=== PATIENT | female | born 1960 | race Caucasian/White ===

== ENCOUNTER 2017-05-19 12:30 | Outpatient (CLI) | payer OTHER ==
--- NOTE | 2017-05-20 08:22 | DEXA Report ---
DEXA SCAN: 05/19/2017 CLINICAL INDICATION: Postmenopausal. TECHNIQUE: Dual energy x-ray absorptiometry (DXA) was performed on a [employer] system. Regions measured are the AP spine, femoral neck, and, if needed, forearm. COMPARISON: None. In accordance with the International Society for Clinical Densitometry (ISCD) guidelines, data from previous exams may be reanalyzed using current recommendations and techniques. This is done to allow a more accurate basis for comparison with the current study. FINDINGS: The data for the lumbar spine is as follows: REGION BMD (g/cm/cm) T-SCORE Z-SCORE L1 1.010 -1.0 0.0 L2 1.066 -1.1 -0.1 L3 1.066 -1.1 -0.1 L4 1.029 -1.4 -0.4 TOTAL 1.044 -1.1 -0.1 NOTE: All evaluable vertebrae are used for classification. The data for the hip is as follows: REGION BMD (g/cm/cm) T-SCORE Z-SCORE Neck 0.771 -1.9 -0.8 TOTAL 0.859 -1.2 -0.4 NOTE: The femoral neck or total proximal femur, whichever is lowest, is used for classification. IMPRESSION: THE WHO CLASSIFICATION BASED ON THE INTERNATIONAL REFERENCE STANDARD IS OSTEOPENIA. THE FRACTURE RISK IS INCREASED. RECOMMENDATION: Patients with diagnosis of osteoporosis or osteopenia should have regular bone mineral density assessment. For those eligible for Medicare, routine testing is allowed once every 2 years. Testing frequency can be increased for patients who have rapidly progressing disease or for those who are receiving medical therapy to restore bone mass. COMMENT: World Health Organization (WHO) definitions for osteoporosis and osteopenia: NORMAL BMD: T-score at -1.0 or higher, fracture risk is low. OSTEOPENIA BMD: T-score between -1.0 and -2.5, fracture risk is increased. OSTEOPOROSIS BMD: T-score at -2.5 or lower, fracture risk high. National Osteoporosis Foundation recommends: 1. Obtain adequate dietary calcium (at least 1200 mg per day) and vitamin D (400 -800 international units per day). 2. Participate, as appropriate, in regular weightbearing and muscle- strengthening exercise. 3. Avoid tobacco use and reduce alcohol and caffeine intake. 4. For more detailed information see the website at www.NOF.org. MTDD
== END 2017-05-19 12:31 | disposition home or self-care (01) ==
LOC: DI 12:30
PROVIDERS: ATTEND Family Medicine
DX: Z13.820 Encounter for screening for osteoporosis (principal); M85.89 Other specified disorders of bone density and structure, multiple sites
CPT/HCPCS: 77080

== ENCOUNTER 2017-07-07 11:00 | Outpatient (CLI) | payer OTHER ==
[2017-07-07 11:54] LABS: ALBUMIN/GLOBULIN RATIO 1.5 (1.0-2.2); BILIRUBIN,TOTAL 0.6 mg/dL (0.2-1.0); CALCIUM 9.5 mg/dL (8.5-10.3); CREATININE 0.6 mg/dL (0.4-1.0); TOTAL PROTEIN 6.7 g/dL (6.7-8.2)
== END 2017-07-07 11:01 | disposition home or self-care (01) ==
LOC: LAB 11:00
PROVIDERS: ATTEND Family Medicine
DX: M06.9 Rheumatoid arthritis, unspecified (principal)
CPT/HCPCS: 36415; 80053

== ENCOUNTER 2017-12-09 11:39 | Outpatient (CLI) | payer OTHER ==
[2017-12-09 12:04] LABS: BASOPHILS # (AUTO) 0.1 10^3/uL (0.0-0.1); BASOPHILS % (AUTO) 0.6 %; EOSINOPHILS # (AUTO) 2.6 10^3/uL (0.0-0.7); EOSINOPHILS % (AUTO) 26.5 %; HGB - HEMOGLOBIN 13.5 g/dL (12.0-16.0); LYMPHOCYTES # (AUTO) 2.5 10^3/uL (1.5-3.5); LYMPHOCYTES % (AUTO) 25.7 %; MEAN CORPUSCULAR HEMOGLOBIN 34.1 pg (27.0-31.0); MEAN CORPUSCULAR HGB CONC 34.2 g/dL (32.0-36.0); MEAN CORPUSCULAR VOLUME 99.9 fL (81.0-99.0); MONOCYTES # (AUTO) 0.5 10^3/uL (0.0-1.0); MONOCYTES % (AUTO) 5.5 %; NEUTROPHILS % (AUTO) 41.7 %; PLT - PLATELET COUNT 203 10^3/uL (130-450); RED BLOOD COUNT 3.96 10^6/uL (4.20-5.40); RED CELL DISTRIBUTION WIDTH 14.6 % (12.0-15.0); WHITE BLOOD COUNT 9.6 x10^3/uL (4.8-10.8)
[2017-12-09 12:27] LABS: RBC MORPHOLOGY (MULTIPLE) 2+ ANISOCYTOSIS (NORMAL)
[2017-12-09 12:30] LABS: ALT ALANINE AMINOTRANSFERASE 19 IU/L (10-60); AST ASPARTATE AMINOTRANSFERASE 22 IU/L (10-42); CREATININE 0.5 mg/dL (0.4-1.0); GFR - MDRD 127 (>89)
[2017-12-09 12:46] LABS: CRP - C-REACTIVE PROTEIN < 1.0 mg/dL (0-1.0)
== END 2017-12-09 11:40 | disposition home or self-care (01) ==
LOC: LAB 11:39
PROVIDERS: ATTEND Internal Medicine Rheumatology
DX: M06.09 Rheumatoid arthritis without rheumatoid factor, multiple sites (principal); Z79.899 Other long term (current) drug therapy
CPT/HCPCS: 36415; 82565; 84450; 84460; 85025; 85651; 86140

== ENCOUNTER 2018-05-25 05:30 | Emergency (ER) | payer OTHER ==
[2018-05-25] MEDS ORDERED: SODIUM CHLORIDE 0.9% 1,000 ML IV ONE (05:57)
[2018-05-25] MEDS ORDERED: fentaNYL 100 MCG/2 ML VIAL IVP STA (05:57)
[2018-05-25] MEDS ORDERED: ONDANSETRON 4 MG/2 ML VIAL IVP STA (05:57)
[2018-05-25] MEDS ORDERED: FAMOTIDINE 20 MG/50 ML 50 ML IV ONE (05:59)
--- NOTE | 2018-05-25 06:01 | ED Physician Documentation ---
PD HPI GI BLEED - Stated complaint Stated Complaint: RECTAL BLEEDING - Chief complaint Chief Complaint: Abd Pain - History obtained from History obtained from: Patient - History of Present Illness Timing - onset: Yesterday Associated symptoms: BRBPR, Abdominal pain Similar symptoms before: Has not had sx before - Additional information Additional information: The patient is a 58-year-old female who presents with bright red blood per rectum and abdominal cramping pain. Her symptoms started about 12 hours prior to arrival. She has had several episodes of passing small amounts of bright red blood. She denies clots. She reports associated nausea, without vomiting. She has had chills, and reports urinary frequency, without dysuria. She has no history of similar symptoms in the past. She had surgery for ectopic more than 30 years ago. Review of Systems Constitutional: reports: Chills. denies: Fever Nose: denies: Congestion Throat: denies: Sore throat Cardiac: denies: Chest pain / pressure Respiratory: denies: Dyspnea, Cough GI: reports: Abdominal Pain, Nausea, Bloody / black stool. denies: Vomiting : reports: Frequency. denies: Dysuria Skin: denies: Rash Musculoskeletal: denies: Back pain Neurologic: denies: Headache PD PAST MEDICAL HISTORY - Past Medical History Cardiovascular: None Respiratory: None Endocrine/Autoimmune: None - Present Medications Home Medications: Ambulatory Orders Medication Instructions Recorded Confirmed Calcium Carbonate [Calcium] 1 tab PO DAILY 05/25/18 05/25/18 Cholecalciferol (Vitamin D3) 1 tab PO DAILY 05/25/18 05/25/18 [Vitamin D3] Famotidine 20 mg PO DAILY #20 tablet 05/25/18 Folic Acid 1 tab PO DAILY 05/25/18 05/25/18 HYDROcod/ACETAM 5/325 [[facility] 5/325] 1 - 2 ea PO Q6H PRN #15 tablet 05/25/18 Methotrexate Sodium [Trexall] 1 tab PO DAILY 05/25/18 05/25/18 Promethazine [Phenergan] 25 - 50 mg PO Q6H PRN #10 tab 05/25/18 Tofacitinib Citrate [Xeljanz Xr] 1 tab PO DAILY 05/25/18 05/25/18 - Allergies Allergies/Adverse Reactions: Allergies Allergy/AdvReac Type Severity Reaction Status Date / Time No Known Drug Allergies Allergy Verified 05/25/18 05:41 - Social History Does the pt smoke?: No PD ED PE NORMAL - Vitals Vital signs reviewed: Yes (hypertensive) - General General: Alert and oriented X 3, Well developed/nourished - HEENT HEENT: Atraumatic, Moist mucous membranes, Pharynx benign - Neck Neck: No adenopathy, No JVD - Cardiac Cardiac: RRR - Respiratory Respiratory: No respiratory distress, Clear bilaterally - Abdomen Abdomen: Normal bowel sounds, Soft, Non distended, Other (Mild tenderness to palpation in the left upper quadrant more than elsewhere, without rebound or guarding.) - Back Back: No CVA TTP - Derm Derm: No rash - Extremities Extremities: No edema, No calf tenderness / cord - Neuro Neuro: Alert and oriented X 3, No motor deficit, No sensory deficit, Normal speech PD ED PE EXPANDED - Rectal Rectal: Heme Occult Pos - QC + Results - Vitals Vitals: Oxygen O2 Source Room air - Labs Labs: Laboratory Tests 05/25/18 05/25/18 05/25/18 05:40 05:40 06:51 WBC 12.5 H RBC 4.09 L Hgb 14.1 Hct 42.2 MCV 103.1 H MCH 34.4 H MCHC 33.4 RDW 15.0 Plt Count 194 MPV 8.9 Neut # (Auto) 9.9 H Lymph # (Auto) 1.6 Ferry # (Auto) 0.8 Eos # (Auto) 0.2 Baso # (Auto) 0.0 Absolute Nucleated RBC 0.00 Nucleated RBC % 0.0 Sodium 136 Potassium 3.7 Chloride 102 Carbon Dioxide 27 Anion Gap 7.0 BUN 19 Creatinine 0.6 Estimated GFR (MDRD) 102 Glucose 121 H Calcium 9.5 Total Bilirubin 0.8 AST 22 ALT 17 Alkaline Phosphatase 38 L Total Protein 7.3 Albumin 4.5 Globulin 2.8 Albumin/Globulin Ratio 1.6 Lipase 26 Urine Color STRAW Urine Clarity CLEAR Urine pH 6.0 Ur Specific Maribel <=1.005 Urine Protein NEGATIVE Urine Glucose (UA) NEGATIVE Urine Ketones NEGATIVE Urine Occult Blood TRACE-INTA Urine Nitrite NEGATIVE Urine Bilirubin NEGATIVE Urine Urobilinogen 0.2 (NORMAL) Ur Leukocyte Esterase NEGATIVE Ur Microscopic Review NOT INDICATED Urine Culture Comments NOT INDICATED PD MEDICAL DECISION MAKING - ED course Complexity details: reviewed results, re-evaluated patient, considered differential, d/w patient, d/w family ED course: The etiology of the patient's rectal bleeding is not certain at this time, but is most likely lower GI given that it is small amount of bright red blood. While internal hemorrhoid is a consideration, her crampy abdominal pain makes diverticular bleeding more likely. CBC reveals normal hemoglobin and hematocrit , with very slightly elevated white count of 12.5. Treatment in the emergency department included administration of normal saline 1 L IV, famotidine 20 mg IV, Ofirmev 1 g IV, and Zofran 4 mg IV. Her symptoms improved with the above treatment, and she had no further episodes of rectal bleeding. I discussed with her and her female research geologist the likely cause of her bleeding, symptomatic treatment and outpatient follow-up, as well as potentially worrisome signs or symptoms that should prompt reevaluation in the emergency department. She is advised to discuss colonoscopy with her primary physician, especially since she had polyps that were removed at her first colonoscopy 9 years ago. - Sepsis Event Vital Signs: Oxygen O2 Source Room air Departure - Departure Disposition: 01 Home, Self Care Clinical Impression: Rectal bleeding Hypertension Qualifiers: Hypertension type: unspecified secondary hypertension Qualified Code(s): I15.9 - Secondary hypertension, unspecified; I15 - Secondary hypertension Condition: Stable Instructions: ED Hematochezia Stable Follow-Up: Luc Charlton MD [Primary Care Provider] - Prescriptions: Famotidine 20 mg PO DAILY #20 tablet HYDROcod/ACETAM 5/325 [[facility] 5/325] 1 - 2 ea PO Q6H PRN #15 tablet PRN Reason: Pain Promethazine [Phenergan] 25 - 50 mg PO Q6H PRN #10 tab PRN Reason: Nausea / Vomiting Comments: Drink plenty of fluids. Take famotidine daily as prescribed. You can use Phenergan as prescribed if needed for nausea. You can use Vicodin as prescribed if needed for pain. Follow up with your primary physician within 1-2 weeks and discuss colonoscopy, and possible upper endoscopy. Return to the emergency department if you develop increasing abdominal pain, persistent vomiting, increasing rectal bleeding, or otherwise worsening symptoms. Discharge Date/Time: 05/25/18 07:57
[2018-05-25 06:08] LABS: BASOPHILS % (AUTO) 0.2 %; EOSINOPHILS # (AUTO) 0.2 10^3/uL (0.0-0.7); EOSINOPHILS % (AUTO) 1.4 %; HGB - HEMOGLOBIN 14.1 g/dL (12.0-16.0); LYMPHOCYTES # (AUTO) 1.6 10^3/uL (1.5-3.5); MEAN CORPUSCULAR HEMOGLOBIN 34.4 pg (27.0-31.0); MEAN CORPUSCULAR HGB CONC 33.4 g/dL (32.0-36.0); MEAN CORPUSCULAR VOLUME 103.1 fL (81.0-99.0); MEAN PLATELET VOLUME 8.9 fL (7.9-10.8); MONOCYTES # (AUTO) 0.8 10^3/uL (0.0-1.0); MONOCYTES % (AUTO) 6.6 %; NEUTROPHILS # (AUTO) 9.9 10^3/uL (1.5-6.6); NEUTROPHILS % (AUTO) 78.8 %; PLT - PLATELET COUNT 194 10^3/uL (130-450); RED BLOOD COUNT 4.09 10^6/uL (4.20-5.40); WHITE BLOOD COUNT 12.5 x10^3/uL (4.8-10.8)
[2018-05-25 06:14] LABS: ALBUMIN 4.5 g/dL (3.2-5.5); ALBUMIN/GLOBULIN RATIO 1.6 (1.0-2.2); BILIRUBIN,TOTAL 0.8 mg/dL (0.2-1.0); CALCIUM 9.5 mg/dL (8.5-10.3); CREATININE 0.6 mg/dL (0.4-1.0); TOTAL PROTEIN 7.3 g/dL (6.7-8.2)
[2018-05-25 07:09] LABS: BILIRUBIN,URINE NEGATIVE (NEGATIVE); GLUCOSE, URINE (UA) NEGATIVE (NEGATIVE); KETONES,URINE (UA) NEGATIVE (NEGATIVE); LEUKOCYTE ESTERASE, URINE NEGATIVE (NEGATIVE); NITRITE,URINE NEGATIVE (NEGATIVE); OCCULT BLOOD,URINE TRACE-INTA (NEGATIVE); PROTEIN,URINE NEGATIVE (NEGATIVE); UROBILINOGEN,URINE 0.2 (NORMAL) E.U./dL (NORMAL)
[2018-05-25 07:12] LABS: CLARITY,URINE CLEAR (CLEAR)
[2018-05-25] MEDS ORDERED: ACETAMINOPHEN 1,000 MG/100 ML 100 ML IV STA (07:22)
[2018-05-25 08:08] VITALS: BP 187/87
[2018-05-25] MEDS ORDERED: LIDOCAINE 1% 2 ML VIAL ONE (13:00)
== END 2018-05-25 07:57 | disposition home or self-care (01) ==
LOC: ED 05:30
DX: K62.5 Hemorrhage of anus and rectum (principal); I15.9 Secondary hypertension, unspecified
CPT/HCPCS: 36415; 80053; 81003; 83690; 85025; 96365; 96375; 99283; 99284; J0131; 81001; 87086

== ENCOUNTER 2023-08-30 09:47 | Outpatient (CLI) | payer OTHER | END 2023-08-30 09:48 | disposition short-term general hospital (02) | LOC: EMS 09:47 | DX: R50.9 Fever, unspecified (principal); R11.0 Nausea; I48.91 Unspecified atrial fibrillation; M79.662 Pain in left lower leg; M79.672 Pain in left foot | CPT/HCPCS: A0425; A0429 ==

== ENCOUNTER 2023-09-22 13:09 | Outpatient (CLI) | payer OTHER ==
[2023-09-22 13:29] LABS: BASOPHILS # (AUTO) 0.1 10^3/uL (0.0-0.1); BASOPHILS % (AUTO) 0.7 %; EOSINOPHILS # (AUTO) 1.8 10^3/uL (0.0-0.7); EOSINOPHILS % (AUTO) 17.8 %; HCT - HEMATOCRIT 31.9 % (37.0-47.0); HGB - HEMOGLOBIN 9.8 g/dL (12.0-16.0); LYMPHOCYTES # (AUTO) 1.4 10^3/uL (1.5-3.5); LYMPHOCYTES % (AUTO) 13.2 %; MEAN CORPUSCULAR HEMOGLOBIN 30.5 pg (27.0-31.0); MEAN CORPUSCULAR HGB CONC 30.7 g/dL (32.0-36.0); MEAN CORPUSCULAR VOLUME 99.4 fL (81.0-99.0); MEAN PLATELET VOLUME 12.3 fL (7.9-10.8); MONOCYTES # (AUTO) 0.4 10^3/uL (0.0-1.0); MONOCYTES % (AUTO) 4.3 %; NEUTROPHILS # (AUTO) 6.6 10^3/uL (1.5-6.6); NEUTROPHILS % (AUTO) 63.7 %; PLT - PLATELET COUNT 239 10^3/uL (130-450); RED BLOOD COUNT 3.21 10^6/uL (4.20-5.40); RED CELL DISTRIBUTION WIDTH 14.3 % (12.0-15.0); WHITE BLOOD COUNT 10.3 x10^3/uL (4.8-10.8)
[2023-09-22 13:35] LABS: CALCIUM 9.5 mg/dL (8.5-10.3); CREATININE 0.8 mg/dL (0.6-1.3); POTASSIUM 4.2 mmol/L (3.5-4.5)
[2023-09-22 13:43] LABS: SLIDE REVIEW? Indicated
[2023-09-22 14:18] LABS: PLATELET ESTIMATE, MANUAL NORMAL (130-450,000) (NORMAL); PLATELET MORPHOLOGY NORMAL APPEARANCE (NORMAL); RBC MORPHOLOGY (MULTIPLE) 2+ ANISOCYTOSIS (NORMAL); WBC MORPHOLOGY (MULTIPLE) NORMAL APPEARANCE (NORMAL)
== END 2023-09-22 13:10 | disposition home or self-care (01) ==
LOC: LAB.R 13:09
PROVIDERS: ATTEND Internal Medicine Infectious Disease
DX: T81.42XA Infection following a procedure, deep incisional surgical site, initial encounter (principal)
CPT/HCPCS: 80048; 85025